=== PATIENT | male | born 1995 | race Caucasian/White ===

== ENCOUNTER 2022-07-23 15:42 | Emergency (ER) | payer SELFPAY ==
[2022-07-23 16:16] VITALS: BP 123/82; PULSE 88; RESP 18; TEMP 98; BMI 25.8
[2022-07-23] MEDS ORDERED: FAMOTIDINE 20 MG TABLET PO ONE (17:15)
[2022-07-23] MEDS ORDERED: MAG HYDROX/AL HYDROX/SIMETH 30 ML UNIT-DOSE CUP PO ONE (17:15)
[2022-07-23] MEDS ORDERED: PANTOPRAZOLE 40 MG TABLET PO ONE (17:15)
== END 2022-07-23 18:41 | disposition home or self-care (01) ==
LOC: JER 15:42
DX: K29.70 Gastritis, unspecified, without bleeding (principal); B96.89 Other specified bacterial agents as the cause of diseases classified elsewhere; R10.13 Epigastric pain; R11.2 Nausea with vomiting, unspecified; R19.7 Diarrhea, unspecified
CPT/HCPCS: 99283-25